=== PATIENT | female | born 1945 | race African-American/Black ===

== ENCOUNTER 2017-04-11 17:49 | Emergency (ER) | payer MEDICARE ==
--- NOTE | ~2017-04-11 | CR72 ---
[facility] A Service of [facility] & [facility] RADIOLOGY TEXT RESULTS PATIENT: ARCENIO KUO LOCATION: [facility] : 45 UNIT #: [id number] AGE: [address]: Lit Palumbo MD SEX: F ORDER DR: [id number] [facility] [address] [facility]. [place], [place] [address] [id number] E MR#: [id number] #: [id number] NAME: ARCENIO KUO : 1945 SEX: F STUDY DATE/TIME: 04/11/2017 18:58 UNIT: [facility] ROOM: STUDY DESCRIPTION: CR Chest Single View Portable Attending Physician: Lit Palumbo M.D. Ordering Physician: Lit Palumbo M.D. MEDICAL IMAGING REPORT This report is preliminary unless electronic signature is present EXAM Portable chest INDICATIONS Cough and chest pain for the past 5 days. TECHNIQUE Frontal view chest. COMPARISON STUDIES CT of 06/18/2014. FINDINGS Moderate cardiomegaly is slightly increased from the prior. No dense consolidation, pleural fluid or pneumothorax. IMPRESSION Moderate cardiomegaly is slightly increased. No active process. Dictated by... Omero Beltran M.D. THIS IS AN ELECTRONICALLY VERIFIED REPORT Omero Beltran M.D. at 04/12/2017 2:25 PM EED/pcl TD: 04/11/2017 22:33 JOB #: [id number] MEDICAL IMAGING REPORT Page 1 of 1 COPY
[~2017-04-11 17:49] MED LIST: ALBUTEROL17 GM INH; AMOXICILLIN PO; ANTIVERT PO; ASPIRIN PO; AVALIDE PO; BACTRIM DS TABL1 TA1 PO; BACTRIM DS TABL1 TAB PO; BACTROBAN22 GM TP; CARAFATE PO; CARAFATE1 GM PO; CIPRO PO; CLARITIN10 MG PO; CLINDAMYCIN HC300 MG PO; COLACE PO; COZAAR PO; DARVOCET-N 1001 TA2 PO; DIOVAN PO; FLONASE 0.05% N16 G1; GABAPENTIN300 M2 PO; GLIPIZIDE10 MG PO; GLUCOTROL PO; GLUCOTROL XL PO; GLUCOVANCE 5/501 TA1 PO; HUMULIN 70/30 V10 ML; HUMULIN 70/30 V10 ML SUBQ; HYDROCHLOROTHIA25 MG PO; IBUPROFEN400 MG PO; JANUVIA50 MG PO; KEFLEX PO; LEVEMIR SC; LORTAB 5/500 TA1 TA1 PO; LORTAB 7.5-5001 TAB PO; LORTAB 7.51 TAB 7.5/ DOB; LOSARTAN POTASS50 MG PO; MECLIZINE HCL25 M2 PO; MEDROL DOSEPAK4 MG PO; MEDROL4 MG/DOSE- PO; METFORMIN HCL500 M1 PO; METFORMIN PO; METHOTREXATE2.5 MG PO; NEURONTIN300 MG PO; NEURONTIN600 MG PO; NEXIUM PO; NICOTINE TRANSD14 MG EXT; NORCO 10-325 TA1 TAB PO; NORVASC PO; NOVOLOG100 U/ML SUBQ; OMEPRAZOLE20 M2 PO; PERCOCET5/325 PO; PHENERGAN PO; PHENERGAN25 MG PO; PRILOSEC PO; PROTONIX PO; REGLAN PO; SENNA PO; TRIAMTERENE-HC1 EAC1 PO; ULTRAM PO; ZANTAC150 MG PO; ZITHROMAX PO; ZOFRAN ODT4 MG PO; ZOFRAN ODT4 MG/UDTAB PO; ZOFRAN PO; ZYRTEC10 M2 PO; [UNRECOGNIZED DRUG - REMARK]; [UNRECOGNIZED DRUG - REMARK]
== END 2017-04-11 19:32 | disposition home or self-care (01) ==
LOC: CED 17:49
DX: J06.9 Acute upper respiratory infection, unspecified (principal)
CPT/HCPCS: 71010; 94664; 99283

== ENCOUNTER 2017-06-12 16:16 | Inpatient (IN) | payer MEDICARE ==
[~2017-06-12] VITALS: Ht 180.3 cm; Wt 83.4 kg
--- NOTE | ~2017-06-12 | DS ---
Unit #: [id number] #: [id number] Patient: ARCENIO KUO [id number] [address] [address] [id number] I MR#: [id number] NAME: ARCENIO KOU ROOM: 578 Age: 71 Sex: F Admission Date: 06/13/2017 : 1945 Discharge Date: 06/14/2017 Attending Physician: Maribel Montejo M.D. Primary Care Physician: [facility]. DISCHARGE SUMMARY DISCHARGE DIAGNOSES 1. Acute recurrent pancreatitis, idiopathic, status post sphincterotomy. 2. Diabetes mellitus type 2. 3. Hypertension. 4. History of rheumatoid arthritis and chronic pain. 5. Positional vertigo. 6. Mild metabolic acidosis. CONSULTANTS None. PROCEDURES None. DIAGNOSTIC STUDIES 1. LABORATORY DATA: Glucose 161, sodium 137, potassium 4.3, lipase 47, liver enzymes normal. 2. CAT scan of the abdomen and pelvis shows stranding around the head and uncinate process of the pancreas suggestive of mildly acute pancreatitis. ALLERGIES Iodinated contrast oral and IV dye. DISCHARGE MEDICATIONS 1. Albuterol two puffs inhalation 4 times daily p.r.n. shortness of breath. 2. Neurontin 300 p.o. 3 times daily. 3. Metformin 1,000 p.o. b.i.d. 4. Cozaar 100 daily. 5. Lortab 10 mg 3 times daily p.r.n. pain. 6. Glipizide 10 mg p.o. b.i.d. HOSPITAL COURSE 71-year-old admitted with abdominal pain: 1. Acute recurrent idiopathic pancreatitis. 2. Hydrochlorothiazide has been discontinued. 3. CAT scan shows acute pancreatitis, currently lipase negative. She wants to eat. I am going to start her on low fat diet and discharge if tolerates diet okay. 4. Diabetes mellitus type, received insulin. Continue p.o. medications. 5. Hypertension, well controlled. Hold hydrochlorothiazide. Continue with the Cozaar. I have a prescription for that. Unit #: [id number] #: [id number] Patient: ARCENIO KUO DISCHARGE DISPOSITION Discharged home. FOLLOWUP Follow with family physician in one week time. Dictated by... MaribelBarrington Foster TD: 06/15/2017 11:32 JOB #: [id number] DISCHARGE SUMMARY Page 1 of 1 X Maribel Montejo MD X DISCHARGE SUMMARY
--- NOTE | ~2017-06-12 | EKG ---
PATIENT: ARCENIO KUO UNIT #: [id number] Ventricular Rate: 101 BPM Atrial Rate: 101 BPM P-R Interval: 176 ms QRS Duration: 90 ms Q-T Interval: 342 ms QTC Calculation(Bezet): 443 ms P [place]: 73 degrees Calculated R [place]: -10 degrees Calculated T [place]: 89 degrees Diagnosis Line: Sinus tachycardia Diagnosis Line: Cannot rule out Anterior infarct (cited on or Diagnosis Line: before 01-OCT-2016) Diagnosis Line: Abnormal ECG Diagnosis Line: When compared with ECG of 01-OCT-2016 16:40, Diagnosis Line: No significant change was found Diagnosis Line: Confirmed by MARIO AUGUSTE MD ([id number]) on 06/13/2017 Diagnosis Line: 12:08:58 AM INTERPRETING MD: KALYANI HALL
--- NOTE | ~2017-06-12 | CT4 ---
[facility] A Service of [facility] & [facility] RADIOLOGY TEXT RESULTS PATIENT: ARCENIO KUO LOCATION: [facility] 578-01 : [birth year] UNIT #: [id number] AGE: [address]: Maribel Montejo MD SEX: F ORDER DR: [id number] [facility] [address] [place], [place] [address] [id number] I MR#: [id number] Acc #: [id number] NAME: ARCENIO KUO : 1945 SEX: F STUDY DATE/TIME: 06/12/2017 19:16 UNIT: [facility] ROOM: 8 STUDY DESCRIPTION: CT Abd and Pelv Wo Cont Attending Physician: Maribel Montejo M.D. Ordering Physician: Derek Vargas D.O. [facility] REPORT This report is preliminary unless electronic signature is present EXAM Abdomen and pelvis CT no contrast, 06/12/2017 INDICATION 71-year-old female with abdominal pain, upper abdominal pain 2 days. History of diabetes, hypertension, cholecystectomy and hysterectomy. TECHNIQUE Noncontrast CT of the abdomen and pelvis was performed. This CT exam was performed with one or more of the following radiation dose reduction techniques: automatic exposure control, adjustment of mA and/or kV according to patient size, and iterative reconstruction. COMPARISON 10/01/[address] ABDOMEN: The exam markedly degraded by noncontrast technique. Included lung bases demonstrate no pleural effusion. There is a 7.0 mm noncalcified parenchymal nodular density in the right lower lobe unchanged dating back to 2013 and therefore benign. Tiny micronodule posterior to the major fissure on the right also stable and therefore benign. Small pericardial effusion. Aorta demonstrates atherosclerotic change. No aneurysm. Spleen unremarkable. Adrenal glands unremarkable. Incidental tiny benign adenoma in the left adrenal gland. Pancreas atrophic. There is subtle stranding around the head and uncinate process of the pancreas. Correlate with signs or symptoms of mild acute pancreatitis and amylase and lipase levels. Gallbladder surgically absent. Liver demonstrates a stable 11.0 mm low-attenuation lesion in the right hepatic lobe compared to the 2013 study which is also benign based on long-term stability. [facility] A Service of [facility] & [facility] RADIOLOGY TEXT RESULTS PATIENT: ARCENIO KUO LOCATION: [facility] 578-01 : [birth year] UNIT #: [id number] AGE: [address]: Maribel Montejo MD SEX: F ORDER DR: Renal vascular calcifications in both kidneys. Benign right renal cyst. No hydronephrosis or inflammatory change of either kidney. CT PELVIS: Bladder unremarkable. Uterus surgically absent. No drainable fluid collection in the pelvis or free fluid. Stool burden suggests mild constipation. No evidence of bowel obstruction. Appendix not identified. It may be surgically absent. No secondary sign of appendicitis. Inguinal canals unremarkable. No suspicious bone lesion. IMPRESSION 1. There is stranding around the head and uncinate process of the pancreas suggestive of mild acute pancreatitis. Correlate with amylase and lipase levels. 2. There is otherwise no acute process in the abdomen or pelvis. No bowel obstruction or drainable fluid collection. Appendix not identified but no secondary sign of appendicitis and it may be surgically absent along with the uterus. 3. Status post cholecystectomy. 4. Renal vascular calcifications and a benign right renal cyst. 5. Benign 11.0 mm lesion in the right hepatic lobe unchanged. 6. Noncalcified lung nodules in the right lower lobe unchanged from 2014 and therefore benign. 7. Small pericardial effusion unchanged. Dictated by... Bc Sahu M.D. THIS IS AN ELECTRONICALLY VERIFIED REPORT Bc Sahu M.D. at 06/13/2017 11:06 PM Tyesha TD: 06/13/2017 08:41 JOB #: [id number] MEDICAL IMAGING REPORT Page 1 of 1 COPY
--- NOTE | ~2017-06-12 | HP ---
Unit #: [id number] #: [id number] Patient: ARCENIO KUO [id number] [address] [address] [id number] I MR#: [id number] NAME: ARCENIO KUO ROOM: 578 Age: 71 Sex: F Admission Date: 06/13/2017 : 1945 Attending Physician: Tammy Perez M.D. Primary Care Physician: [facility]. HISTORY AND PHYSICAL CHIEF COMPLAINT Recurrent pancreatitis. HISTORY This 71-year-old female with AODM, hypertension, rheumatoid arthritis, and history of idiopathic pancreatitis, is readmitted for pancreatitis. The patient was at a cookout four days ago. States that three days ago she developed epigastric pain radiating to her right thigh with some abdominal bloating despite using her usual p.r.n. Mclouth. She presented to this emergency department late last evening with a blood pressure of 186/83. The rest of her vital signs were stable. The lipase is only mildly elevated, but CT scan does show stranding around the pancreas. She was given a GI cocktail and Bentyl without much improvement. She was bolused with IV fluids, then given Zofran and morphine. The patient has required admissions in the past for recurrent pancreatitis. She is status post cholecystectomy and sphincterotomies. Had normal triglyceride level in the past and negative CA19-9. Does not drink alcohol. PAST MEDICAL HISTORY 1. AODM. 2. History of recurrent pancreatitis which I believe was diagnosed as idiopathic pancreatitis requiring sphincterotomies in the past. Normal triglyceride level. 3. Essential hypertension. 4. Rheumatoid arthritis and chronic pain. 5. Knee surgery. 6. Benign positional vertigo requiring admission 10/2013. 7. Pilonidal cyst excision. 8. Left carpal tunnel release. 9. Cholecystectomy. 10. Excision of a right breast cyst. 11. Negative colonoscopy. ALLERGIES IV dye. HOME MEDICATIONS 1. Dyazide, one p.o. daily. 2. Ventolin inhaler, two puffs q.i.d. p.r.n. 3. Neurontin 300 mg t.i.d. 4. Glipizide 10 mg b.i.d. Unit #: [id number] #: [id number] Patient: ARCENIO KUO 5. Glucophage 1000 mg b.i.d. 6. P.r.n. Mclouth 10/325 t.i.d. FAMILY HISTORY Negative for neurologic disease. Positive for diabetes mellitus. SOCIAL HISTORY The patient lives with her son and granddaughter. She smokes one half pack per day of tobacco, does not drink alcohol. REVIEW OF SYSTEMS Notable for abdominal pain, bloating, diabetes, pancreatitis, hypertension, rheumatoid arthritis, above mentioned surgeries. All other systems were reviewed and otherwise negative. PHYSICAL EXAMINATION GENERAL APPEARANCE: Pleasant 71-year-old female, currently in no acute distress. VITAL SIGNS: Temperature 97.6, pulse 100, respirations 18, blood pressure 186/83. O2 saturation is 100% on room air. HEENT: Eyes PERRLA. Extraocular muscles are intact. Pharynx is benign. NECK: Supple without adenopathy or thyromegaly. CHEST: Clear. CARDIAC: Normal S1 and S2 without murmur. ABDOMEN: Bowel sounds are present. The patient is tender in the epigastric region and just to the right of the epigastric region but without rebound or guarding. No hepatosplenomegaly or masses. EXTREMITIES: Without C, C or E. Pedal pulses are diminished. No ulcers on the feet. NEUROLOGIC EXAM: The patient is awake, alert, oriented. Cranial nerves are intact. Equal strength throughout. DIAGNOSTIC STUDIES LABORATORY: Hematocrit 35.9. Normal white count and platelet count. SMA-12 - glucose is 187, CO2 21, protein is 8.5, lipase is 96 which is minimally elevated. Negative cardiac markers. Urinalysis - trace protein. IMAGING: CT scan shows stranding around the pancreas. CARDIOVASCULAR: EKG - sinus tachycardia, rate 101, T wave inversion noted in AVL which was noted previously. Somewhat poor R wave progression which could be, in part, due to lead placement. ASSESSMENT 1. Recurrent, possibly idiopathic, pancreatitis, status post sphincterotomy. 2. AODM. 3. Essential hypertension, on Dyazide. 4. Rheumatoid arthritis. 5. Tobacco. PLANS 1. IV fluids and supportive treatment. 2. Recheck all labs in the morning. 3. Would discontinue thiazide diuretic given recurrent pancreatitis. Unit #: [id number] #: [id number] Patient: ARCENIO KUO Will give another blood pressure medicine, but would probably not give an EAMON inhibitor either given recurrent pancreatitis. 4. DVT and gastritis prophylaxis. 5. Obtain triglyceride level and repeat labs in the morning. 6. If not improving, will ask GI to see in consultation. Dictated by Tammy Perez M.D. CALEB/rachael TD: 06/13/2017 05:25 JOB #: [id number] HISTORY AND PHYSICAL Page 1 of 1 X Tammy Perez MD X HISTORY AND PHYSICAL
[2017-06-12 17:08] LABS: BASOPHIL# 0.1 X10e3 (0-0.3); BASOPHIL% 0.8 % (0-2.5); EOSINOPHIL# 0.1 X10e3 (0-0.7); EOSINOPHIL% 0.9 % (0.0-7.0); HEMATOCRIT 35.9 % (35.0-45.0); HEMOGLOBIN 11.7 gm/dL (12.0-16.0); LYMPHOCYTE# 2.8 X10e3 (1.0-3.5); LYMPHOCYTE% 31.2 % (17.0-45.0); MEAN CELL VOLUME 85.3 FL (83-96); MEAN CORPUSCULAR HEMOGLOBIN 27.9 PG (28-34); MEAN CORPUSCULAR HGB CONC 32.7 g/dL (30-36); MEAN PLATELET VOLUME 8.6 FL (6.5-11.5); MONOCYTE# 0.5 X10e3 (0-1.0); MONOCYTE% 5.9 % (3.0-12.0); NEUTROPHIL# 5.4 X10e3 (1.5-7.1); NEUTROPHIL% 61.2 % (40-75); PLATELET COUNT 413 X10e3 (140-420); RED BLOOD COUNT 4.21 X10e (3.90-5.30); RED CELL DISTRIBUTION WIDTH 14.8 % (11.0-15.5); WHITE BLOOD COUNT 8.9 X10e3 (4.0-10.5)
[2017-06-12 17:19] LABS: DIFF IND NO
[2017-06-12 17:31] LABS: ALBUMIN SERUM 4.7 g/dL (3.5-5.0); BILIRUBIN, DIRECT 0.1 mg/dL (0.0-0.2); BILIRUBIN,INDIRECT 0.8 mg/dL (0.0-0.9); BILIRUBIN,TOTAL 0.9 mg/dL (0.2-2.0); BUN/CREATININE RATIO 17.69; CALCIUM SERUM 9.7 mg/dL (8.4-10.2); CREATININE SERUM 1.3 mg/dL (0.6-1.4); GLOM FILT RATE Estimated 47.8 mL/min (>60); PROTEIN TOTAL SERUM 8.5 g/dL (6.0-8.3)
[2017-06-12 18:54] LABS: URINE SOURCE CLEAN CATCH
[2017-06-12 19:01] LABS: URINE APPEARANCE CLEAR; URINE BILIRUBIN NEG (NEG); URINE BLOOD NEG (NEG); URINE COLOR YELLOW; URINE GLUCOSE NEG (NEG); URINE KETONE NEG (NEG); URINE LEUKOCYTE ESTERASE NEG (NEG); URINE NITRATE NEG (NEG); URINE PROTEIN TRACE (NEG); URINE SPECIFIC GRAVITY 1.015 (1.003-1.035); URINE UROBILINOGEN 0.2 MG/DL (NEG)
[2017-06-12 19:06] LABS: CULTURE INDICATED? NO
[2017-06-12] MEDS ORDERED: TRIAMTERENE-HC1 EAC1 PO (23:53)
[2017-06-12] MEDS ORDERED: GLIPIZIDE10 MG PO (23:54)
[2017-06-12] MEDS ORDERED: ALBUTEROL17 GM INH (23:54)
[2017-06-12] MEDS ORDERED: NEURONTIN300 MG PO (23:54)
[2017-06-12] MEDS ORDERED: METFORMIN PO (23:55)
[2017-06-12] MEDS ORDERED: HYDROCODON-ACE1 EAC5 PO (23:55)
[2017-06-13 06:18] LABS: HEMATOCRIT 33.3 % (35.0-45.0); HEMOGLOBIN 10.9 gm/dL (12.0-16.0); MEAN CELL VOLUME 86.1 FL (83-96); MEAN CORPUSCULAR HEMOGLOBIN 28.1 PG (28-34); MEAN CORPUSCULAR HGB CONC 32.6 g/dL (30-36); MEAN PLATELET VOLUME 7.8 FL (6.5-11.5); RED BLOOD COUNT 3.87 X10e (3.90-5.30); WHITE BLOOD COUNT 8.9 X10e3 (4.0-10.5)
[2017-06-13 06:34] LABS: ALBUMIN SERUM 4.5 g/dL (3.5-5.0); BILIRUBIN,TOTAL 0.4 mg/dL (0.2-2.0); BUN/CREATININE RATIO 19.09; CALCIUM SERUM 9.3 mg/dL (8.4-10.2); CREATININE SERUM 1.1 mg/dL (0.6-1.4); GLOM FILT RATE Estimated 58.5 mL/min (>60); POTASSIUM 4.5 mmol/L (3.5-5.1); PROTEIN TOTAL SERUM 8.1 g/dL (6.0-8.3)
[2017-06-13 06:39] LABS: INR 1.7; PARTIAL THROMBOPLASTIN TIME 31.7 SECONDS (23.5-31.3); PROTHROMBIN TIME (PATIENT) 18.8 SECONDS (10.0-11.7)
[2017-06-14 05:30] LABS: HEMATOCRIT 31.7 % (35.0-45.0); HEMOGLOBIN 10.1 gm/dL (12.0-16.0); MEAN CELL VOLUME 85.8 FL (83-96); MEAN CORPUSCULAR HEMOGLOBIN 27.3 PG (28-34); MEAN CORPUSCULAR HGB CONC 31.9 g/dL (30-36); RED BLOOD COUNT 3.69 X10e (3.90-5.30); RED CELL DISTRIBUTION WIDTH 14.7 % (11.0-15.5); WHITE BLOOD COUNT 7.4 X10e3 (4.0-10.5)
[2017-06-14 06:26] LABS: ALBUMIN SERUM 3.8 g/dL (3.5-5.0); BILIRUBIN,TOTAL 0.5 mg/dL (0.2-2.0); BUN/CREATININE RATIO 11.53; CREATININE SERUM 1.3 mg/dL (0.6-1.4); GLOM FILT RATE Estimated 47.8 mL/min (>60); POTASSIUM 4.3 mmol/L (3.5-5.1); PROTEIN TOTAL SERUM 7.1 g/dL (6.0-8.3)
[2017-06-14] MEDS ORDERED: COZAAR100 MG PO (13:58)
== END 2017-06-14 18:43 | disposition home or self-care (01) | DRG 439 ==
LOC: CED 16:16 → CEDOF 06-13 01:14 → CED 06-13 01:14 → CEDOF 06-13 01:30 → C5C 06-13 02:40
PROVIDERS: Internal Medicine
DX: K85.00 Idiopathic acute pancreatitis without necrosis or infection (principal); E87.2 Acidosis; E11.9 Type 2 diabetes mellitus without complications; M06.9 Rheumatoid arthritis, unspecified; I10 Essential (primary) hypertension; H81.10 Benign paroxysmal vertigo, unspecified ear; G89.29 Other chronic pain; Z91.041 Radiographic dye allergy status; Z90.49 Acquired absence of other specified parts of digestive tract; Z79.84 Long term (current) use of oral hypoglycemic drugs; F17.200 Nicotine dependence, unspecified, uncomplicated
CPT/HCPCS: 36415; 74176; 80048; 80053; 80076; 81003; 82150; 82947; 83690; 84478; 84484; 85025; 85027; 85610; 85730; 93005; 94760; 96361; 96372; 96374; 96375; 99285; J0360; J0500; J1650; J1815; J1885; J2270; J2405